=== PATIENT | female | born 1995 ===

== ENCOUNTER 2025-04-30 13:49 | Outpatient (CLI) | payer OTHER | END 2025-04-30 17:00 | disposition home or self-care (01) | LOC: Rad HDHVI 13:49 | PROVIDERS: ATTEND Internal Medicine Cardiovascular Disease | DX: R00.2 Palpitations (principal); R06.02 Shortness of breath | CPT/HCPCS: 93306 ==

== ENCOUNTER 2025-05-01 10:06 | Outpatient (CLI) | payer OTHER ==
[~2025-05-01] VITALS: Ht 170.2 cm; Wt 63.5 kg
--- NOTE | 2025-05-11 18:34 | DVHSR ---
APPROVED REPORT Exam: Nuclear Stress Test Indication: Chest pain Ht: 5 ft 7 in Wt: 140 lbs BSA: 1.74 m2 HR: 99 bpm BP: 103/70 mmHg BMI: 21.92 Rhythm: NSR with SA Medical History Medical History: Abnormal EKG, Chest pain, Dizziness, Smoking, Palpitations, SOB Medications: Magnesium Glycinate Cardiac Risk Factors: Family Hx of CAD Stress Test Details Stress Test: Exercise stress testing was performed using a Matthieu protocol. HR Resting HR: 99 bpmMax Heart Rate (APMHR): 190.369669 bpm Max HR Achieved: 162 bpmTarget HR (85% APMHR): 161.521524 bpm % of APMHR: 85.26 Recovery HR: 101 bpm HR response to stress: Accelerated BP Resting BP: 103/70 mmHg Max BP: 123/60 mmHg Recovery BP: 102/64 mmHg BP response to stress: Normal blood pressure response to stress. ECG Resting ECG: NSR, SA Stress ECG: Sinus Tachycardia Arrhythmia: Sinus arrhythmia Recovery ECG: Sinus Tachycardia Clinical Reason for Termination: Target HR achieved Stress Symptoms: None Exercise duration: 6 min 30 sec Exercise capacity: 7.0 METs Stress ECG Conclusion NON ISCHEMIC CLINICAL RESPONSE NON ISCHEMIC ECG RESPONSE CARDIOLITE PERFUSION SCAN WITH NO REVERSIBLE DEFECTS EF >55% LESS THAN 10% LIKELIHOOD FOR STRESS INDUCED ISCHEMIA NM EXAM: Myocardial Perfusion REST/STRESS Imaging Protocol: Rest Tc-99m/Stress Tc-99m 1 day Resting Data Rest SPECT myocardial perfusion imaging was performed in supine position 30 minutes following the int ravenous injection of 10.89 mCi of Tc-99m Sestamibi. Time of rest injection: 1018 Date: 05/01/2025 Time of rest imagin Date: 05/01/2025 Administration Route: IV Administration Site: Left AC Exercise Stress At peak stress, the patient was injected intravenously with 28.9 mCi of Tc-99m Sestamibi. Time of stress injection: 1129 Date: 05/01/2025 Time of stress imagin Date: 05/01/2025 Administration Route: IV Administration Site: Left AC Heart Rate at time of stress injection: 160 bpm. Patient continued to exercise for 1 minute(s). Gated Stress SPECT was performed 15 minutes after stress injection. The images were gated to evaluate regional wall motion and calculate left ventricular ejection fracti on. Comments Cardiolite injection at 5 minutes, 28 seconds into test. Nuclear Conclusion NON ISCHEMIC CLINICAL RESPONSE NON ISCHEMIC ECG RESPONSE CARDIOLITE PERFUSION SCAN WITH NO REVERSIBLE DEFECTS EF >55% LESS THAN 10% LIKELIHOOD FOR STRESS INDUCED ISCHEMIA
== END 2025-05-01 17:00 | disposition home or self-care (01) ==
LOC: Rad HDHVI 10:06
PROVIDERS: ATTEND Internal Medicine Cardiovascular Disease
DX: R00.0 Tachycardia, unspecified (principal); R00.2 Palpitations; R06.02 Shortness of breath; R07.89 Other chest pain; R94.31 Abnormal electrocardiogram [ECG] [EKG]; R42 Dizziness and giddiness; F17.210 Nicotine dependence, cigarettes, uncomplicated; Z82.49 Family history of ischemic heart disease and other diseases of the circulatory system
CPT/HCPCS: 78452; 93017; A9500; 96374